=== PATIENT | male | born 1985 | race Caucasian/White ===

== ENCOUNTER 2019-03-17 18:54 | Emergency (ER) | payer OTHER ==
[~2019-03-17] VITALS: Ht 165.1 cm; Wt 104.3 kg
[2019-03-17] MEDS ORDERED: ZITHROMAX250 MG PO (19:58)
== END 2019-03-17 20:11 | disposition home or self-care (01) ==
LOC: ED 18:54
DX: J20.9 Acute bronchitis, unspecified (principal); Z88.7 Allergy status to serum and vaccine
CPT/HCPCS: 71046; 99283-25